=== PATIENT | male | born 1960 | race African-American/Black ===

== ENCOUNTER 2017-02-04 01:48 | Emergency (ER) | payer OTHER ==
[2017-02-04 02:11] VITALS: BMI 25.8
[2017-02-04] MEDS ORDERED: ONDANSETRON 4 MG TABLET PO ONE (03:18)
[2017-02-04] MEDS ORDERED: MAG HYDROX/AL HYDROX/SIMETH 30 ML UNIT-DOSE CUP PO ONE (03:18)
[2017-02-04] MEDS ORDERED: RANITIDINE HCL 150 MG TABLET (FP) PO ONE (03:18)
--- NOTE | 2017-02-04 03:18 | PDOC ---
History of Present Illness - General Chief Complaint: Pain, Acute Stated Complaint: ABD PAIN,VOMITING Time Seen by Provider: 02/04/17 02:00 History Source: Patient - History of Present Illness Travel History: No Timing/Duration: reports: intermittent Quality: reports: cramping Abdominal Pain Onset Location: reports: [place] Pain Radiation: reports: no radiation Past History - Travel Traveled outside of the country in the last 30 days: No Close contact w/someone who was outside of country & ill: No - Past Medical History Allergies/Adverse Reactions: Allergies Allergy/AdvReac Type Severity Reaction Status Date / Time No Known Allergies Allergy Verified 02/04/17 02:09 Home Medications: Ambulatory Orders Labetalol HCl [Normodyne -] 100 mg PO BID #60 tablet 03/16/16 Lactobacillus Acidophilus [Acidophilus Lactobacillus] 1 each PO DAILY #30 capsule 03/16/16 Mag Hydrox/Al Hydrox/Simeth [Mylanta Suspension -] 30 ml PO Q6H #1 bottle Ranitidine [Zantac -] 300 mg PO ONCE #10 tablet 02/04/17 Anemia: Yes Asthma: No Cardiac Disorders: No COPD: No Diabetes: No GI Disorders: No Disorders: No HTN: Yes (ON MEDS) Kidney Stones: No Liver Disease: Yes (hepatic cirrhosis) Suicide Attempt (Hx): No (DENIES) Seizures: No Thyroid Disease: No - Surgical History Abdominal Surgery: Yes ( UMBILICAL HERNIA REPAIR 10/2015) Orthopedic Surgery: Yes (rt. knee fracture) - Reproductive History Testicular Surgery: No - Psycho/Social/Smoking Cessation Hx Anxiety: No Suicidal Ideation: No Smoking History: Current some day smoker Have you smoked in the past 12 months: Yes Number of Cigarettes Smoked Daily: 1 Information on smoking cessation initiated: Yes 'Breaking Loose' booklet given: 02/04/17 Hx Alcohol Use: Yes (VODKA) Drug/Substance Use Hx: Yes Substance Use Type: Alcohol, Heroin Hx Substance Use Treatment: Yes Abd/GI Specific PMHX - Complaint Specific PMHX Hepatitis: Yes Pancreatitis: Yes Review of Systems - Review of Systems Able to Perform ROS?: Yes Comments:: 02/04/17 03:53 CONSTITUTIONAL: Absent: fever, chills, diaphoresis, generalized weakness, malaise, loss of appetite HEENT: Absent: rhinorrhea, nasal congestion, throat pain, throat swelling, difficulty swallowing, mouth swelling, ear pain, eye pain, visual Changes CARDIOVASCULAR: Absent: chest pain, loss of consciousness, palpitations, irregular heart rate, peripheral edema RESPIRATORY: Absent: cough, shortness of breath, dyspnea with exertion, orthopnea, wheezing, stridor, hemoptysis GASTROINTESTINAL: LUQ pain Absent: abdominal distension, nausea, vomiting, diarrhea, constipation, melena, hematochezia GENITOURINARY: Absent: dysuria, frequency, urgency, hesitancy, hematuria, flank pain, genital pain MUSCULOSKELETAL: Absent: myalgia, arthralgia, joint swelling SKIN: Absent: rash, itching, pallor HEMATOLOGIC/IMMUNOLOGIC: Absent: easy bleeding, easy bruising, lymphadenopathy, frequent infections ENDOCRINE: Absent: unexplained weight gain, unexplained weight loss, heat intolerance, cold intolerance NEUROLOGIC: Absent: headache, focal weakness or paresthesias, dizziness, unsteady gait, seizure, mental status changes, bladder or bowel incontinence PSYCHIATRIC: Absent: anxiety, depression, suicidal or homicidal ideation, hallucinations. Is the patient limited Bulgarian proficient: No *Physical Exam - Vital Signs Last Vital Signs Temp Pulse Resp BP Pulse Ox 97.8 F 99 H 18 163/87 99 02/04/17 02:09 02/04/17 02:09 02/04/17 02:09 02/04/17 02:09 02/04/17 02:09 - Physical Exam Comments: 02/04/17 03:53 GENERAL: Well developed, well nourished. Awake and alert. No acute distress. HEENT: Normocephalic, atraumatic. PERRLA, EOMI. No conjunctival pallor. Sclera are non- icteric. Moist mucous membranes. Oropharynx is clear. NECK: Supple. Full ROM. No JVD. Carotid pulses 2+ and symmetric, without bruits. No thyromegaly. No lymphadenopathy. CARDIOVASCULAR: Regular rate and rhythm. No murmurs, rubs, or gallops. Distal pulses are 2+ and symmetric. PULMONARY: No evidence of respiratory distress. Lungs clear to auscultation bilaterally. No wheezing, rales or rhonchi. ABDOMINAL: Soft. Non-tender. Non-distended. No rebound or guarding. No organomegaly. Normoactive bowel sounds. MUSCULOSKELETAL Normal range of motion at all joints. No bony deformities or tenderness. No CVA tenderness. EXTREMITIES: No cyanosis. No clubbing. No edema. No calf tenderness. SKIN: Warm and dry. Normal capillary refill. No rashes. No jaundice. NEUROLOGICAL: Alert, awake, appropriate. Cranial nerves 2-12 intact. No deficits to light touch and temperature in face, upper extremities and lower extremities. No motor deficits in the in face, upper extremities and lower extremities. Normoreflexic in the upper and lower extremities. Normal speech. Toes are down- going bilaterally. Gait is normal without ataxia. PSYCHIATRIC: Cooperative. Good eye contact. Appropriate mood and affect. Progress Note - Progress Note Progress Note: 57-year-old male presents to the emergency department complaining of left upper quadrant abdominal cramping described as 2/10 nonradiating intermittent discomfort without fever, chills, nausea/vomiting, diarrhea/constipation, chest pain, shortness of breath, headaches, dizziness, lightheadedness, neck/back pains, urinary symptoms: Frequency/urgency/hesitancy, hematuria, flank pains, extremity numbness or tingling sensation. Patient states he had dinner ("some meat" at this evening that didn't agree with him. Patient able to smile, uncle his forehead, puff out his cheeks with symmetric outcome. Patient had good strength x4 0345hrs: After giving patient Zantac, Maalox, zofran patient states he feels much better and the cramping has subsided. Upon discharge, patient states his equilibrium is off but denies any headache, dizziness, lightheadedness, neck/back pains, chest pain or shortness of breath. Patient walked into the emergency department with a limp and on initial exam, he states that is his usual gait but upon discharge, patient states it is not his usual gait. *DC/Admit/Observation/Transfer Diagnosis at time of Disposition: Gastritis Qualifiers: Gastritis type: other gastritis Chronicity: unspecified Gastritis bleeding: without bleeding Qualified Code(s): K29.60 - Other gastritis without bleeding - Discharge Dispostion Disposition: HOME Condition at time of disposition: Stable Admit: No - Prescriptions Prescriptions: Mag Hydrox/Al Hydrox/Simeth [Mylanta Suspension -] 30 ml PO Q6H #1 bottle Ranitidine [Zantac -] 300 mg PO ONCE #10 tablet - Referrals Referrals: Geoff Curiel MD [Staff Physician] - - Patient Instructions Printed Discharge Instructions: DI for Gastritis Additional Instructions: Rest Increase fluids [place] diet with slow transition to regular diet Follow-up with the transit department clerk listed on your discharge Return back to the emergency department for severe/persistent or worsening symptoms.
[2017-02-04] MEDS ORDERED: ONDANSETRON *ODT* 4 MG TABLET ONE (03:20)
[2017-02-04] MEDS ORDERED: RANITIDINE HCL 150 MG TABLET (FP) ONE (03:20)
[2017-02-04] MEDS ORDERED: MAG HYDROX/AL HYDROX/SIMETH 30 ML UNIT-DOSE CUP ONE (03:20)
[2017-02-04 06:03] LABS: BASOPHIL 1.5 % (0-2.0); MCH 30.5 pg (25.7-33.7); MCHC 34.2 g/dl (32.0-35.9); MEAN CELL VOLUME 89.3 fl (80-96); MEAN PLT VOLUME 10.7 fl (7.5-11.1); NEUTROPHILS 78.2 % (42.8-82.8); PLATELET COUNT 122 K/MM3 (134-434); RDW 15.8 % (11.9-15.9); WHITE BLOOD COUNT 11.1 K/mm3 (4.0-10.0)
[2017-02-04 06:26] LABS: ANION GAP 7 (8-16); BILIRUBIN,TOTAL 0.8 mg/dL (0.2-1.0); CALCIUM 7.4 mg/dL (8.5-10.1); CO2 27 mmol/L (21-32); CREATININE 0.9 mg/dL (0.7-1.3); GLUCOSE,RANDOM 127 mg/dL (74-106); SGOT/AST 111 U/L (15-37); SGPT/ALT 35 U/L (12-78); TOT PROT 4.2 g/dl (6.4-8.2)
[2017-02-04 06:28] LABS: ALK PHOS 157 U/L (45-117); TROPONIN I 0.02 ng/ml (0.00-0.05)
--- NOTE | 2017-02-04 07:20 | PDOC ---
*Physical Exam - Vital Signs Last Vital Signs Temp Pulse Resp BP Pulse Ox 97.8 F 99 H 18 163/87 99 02/04/17 02:09 02/04/17 02:09 02/04/17 02:09 02/04/17 02:09 02/04/17 02:09 ED Treatment Course - LABORATORY CBC & Chemistry Diagram: 02/04/17 05:55 02/04/17 05:55 - ADDITIONAL ORDERS Additional order review: Laboratory Results 02/04/17 02/04/17 05:55 05:55 Sodium 145 Potassium 4.2 Chloride 111 H Carbon Dioxide 27 Anion Gap 7 L BUN 16 D Creatinine 0.9 Creat Clearance w eGFR > 60 Random Glucose 127 H Calcium 7.4 L Total Bilirubin 0.8 D AST 111 H D ALT 35 D Alkaline Phosphatase 157 H D Creatine Kinase 488 H D Creatine Kinase Index 1.8 CK-MB (CK-2) 8.629 H CK-MB (CK-2) Rel Index Cancelled Troponin I 0.02 D Total Protein 4.2 L Albumin 1.0 L 02/04/17 05:55 RBC 3.86 L D MCV 89.3 MCHC 34.2 RDW 15.8 MPV 10.7 Neutrophils % 78.2 Lymphocytes % 15.9 D Monocytes % 4.4 Eosinophils % 0.0 D Basophils % 1.5 - Medications Given in the ED: ED Medications Discontinued Medications Generic Name Dose Route Start Last Admin Trade Name Freq PRN Reason Stop Dose Admin Al Hydroxide/Mg Hydroxide 30 ml 02/04/17 03:18 02/04/17 03:26 Mylanta Oral Suspension - PO 02/04/17 03:19 30 ml ONCE ONE Administration Ondansetron HCl 4 mg 02/04/17 03:18 02/04/17 03:26 Zofran - PO 02/04/17 03:19 4 mg ONCE ONE Administration Ranitidine HCl 300 mg 02/04/17 03:18 02/04/17 03:26 Zantac - PO 02/04/17 03:19 300 mg ONCE ONE Administration Medical Decision Making - Medical Decision Making 02/04/17 07:36 Received pt on signout at 7am. Was treated for GI complaint overnight, but when he was ready to be discharged, he c/o dizziness, CTH was ordered. Called by radiology for +CTH, found to have ICH in the 4th ventricle. There is currently no NSx radiation protection engineer, will arrange transfer out. 02/04/17 08:24 Pt reassessed. He now states he has had headaches (which he initially denied per chart review) for past few days, has had unstable gait. I have started nicardipine drip, sent coags and T&S. I have contacted [facility] for transfer. Will accept pending coags (need to determine if he needs to be acutely treated). Goal SBP 140. 02/04/17 09:01 D/w ED physician Vi. Latest BP 190/99, EMS is currently adjusting nicardipine drip. *DC/Admit/Observation/Transfer Diagnosis at time of Disposition: Intracranial hemorrhage - Discharge Dispostion Disposition: HOME Condition at time of disposition: Stable Admit: No - Prescriptions Prescriptions: Mag Hydrox/Al Hydrox/Simeth [Mylanta Suspension -] 30 ml PO Q6H #1 bottle Ranitidine [Zantac -] 300 mg PO ONCE #10 tablet - Referrals Referrals: Geoff Curiel MD [Staff Physician] - - Patient Instructions Additional Instructions: Rest Increase fluids [place] diet with slow transition to regular diet Follow-up with the sample finisher listed on your discharge Return back to the emergency department for severe/persistent or worsening symptoms. - Post Discharge Activity
[2017-02-04] MEDS ORDERED: NICARDIPINE 25 MG in DEXTROSE 5%-WATER - 240 ML IVPB SCH ×2 (08:00→08:29)
[2017-02-04 09:15] LABS: INR 1.16 (0.82-1.09); PROTHROMBIN TIME (PATIENT) 12.8 SEC (9.98-11.88)
[2017-02-04 09:23] VITALS: BP 199/99; PULSE 88; TEMP 98.1
--- NOTE | 2017-02-04 09:47 | EKG ---
Test Reason : Blood Pressure : / mmHG Vent. Rate : 095 BPM Atrial Rate : 095 BPM P-R Int : 144 ms QRS Dur : 078 ms QT Int : 386 ms P-R-T Axes : 057 008 041 degrees QTc Int : 485 ms SINUS RHYTHM WITH PREMATURE ATRIAL COMPLEXES WITH ABERRANT CONDUCTION MINIMAL VOLTAGE CRITERIA FOR LVH, MAY BE NORMAL VARIANT POSSIBLE ANTERIOR INFARCT , AGE UNDETERMINED ABNORMAL ECG WHEN COMPARED WITH ECG OF 06-MAR-2016 09:24, ABERRANT CONDUCTION IS NOW PRESENT Confirmed by RACHEL MENDEZ MD ([id number]) on 02/04/2017 9:46:32 AM Referred By: Confirmed By:RACHEL MENDEZ MD
== END 2017-02-04 09:28 | disposition home or self-care (01) ==
LOC: JER 01:48
DX: K29.60 Other gastritis without bleeding (principal); I10 Essential (primary) hypertension; K74.60 Unspecified cirrhosis of liver; F17.210 Nicotine dependence, cigarettes, uncomplicated; D64.9 Anemia, unspecified
CPT/HCPCS: 36415; 70450-TC; 80053; 82550; 82553; 84484; 85025; 85610; 86850; 86870; 86900; 86901; 86902; 93005; 93010; 99284-25